=== PATIENT | male | born 1995 | race Caucasian/White ===

== ENCOUNTER 2017-09-03 21:49 | Emergency (ER) | payer BC ==
[~2017-09-03] VITALS: Ht 175.3 cm; Wt 70.4 kg
[2017-09-03 21:53] VITALS: BP 137/80; Ht 175.3 cm; Wt 70.4 kg
[2017-09-03] MEDS ORDERED: ADAP0.05 TOP (22:22)
[2017-09-03] MEDS ORDERED: MINO50CA3 PO (22:22)
[2017-09-03] MEDS ORDERED: AMOXICILLIN 250 MG CAP PO STA (23:01)
[2017-09-03] MEDS ORDERED: AMOXICILLIN HOME PACK 250 MG/TAB PO STA (23:01)
[2017-09-03] MEDS ORDERED: AMX500 PO (23:02)
--- NOTE | 2017-09-03 23:03 | EMERGENCY ROOM VISIT NOTE ---
History First contact with patient: 22:07 Chief Complaint: SORETHROAT Stated Complaint: SORE THROAT,CONGESTION History of Present Illness The patient is a 22 year old male who presents to the Emergency Room via private vehicle accompanied by female with complaints of "sore throat, congestion". The patient states that Wednesday morning he fell onto the weather , and has been using Mucinex and Advil for the headaches, congestion and sore throat. He also notes that his sides feel sore. He states that he had cold sweats this morning. He states that he has been feeling better as the day has been going on. He notes minimal light sensitivity. His immunizations are up-to -date. He denies any abdominal pain, urinary symptoms, or nausea. Review of Systems A complete 6-point Review of Systems was discussed with the patient, with pertinent positives and negatives listed in the History of Present Illness. All remaining Review of Systems questions can be considered negative unless otherwise specified. Past Medical/Surgical History No pertinent. Family History No pertinent. Social History Smoking Status: Never Smoker Patient lives locally and is a [employer] student. Current/Historical Medications Scheduled Adapalene-Benzoyl Peroxide (Epiduo), 1 APPLN TOP HS Amoxicillin (Amoxicillin), 500 MG PO TID Minocycline Hcl (Minocycline Hcl), 50 MG PO BID Physical Exam Vital Signs Date Time Temp Pulse Resp B/P (MAP) Pulse Ox O2 Delivery O2 Flow Rate FiO2 09/03/17 23:25 37.4 90 14 99 09/03/17 21:53 100 Room Air 09/03/17 21:53 37.4 89 18 137/80 100 Room Air Physical Exam VITAL SIGNS - Vital signs and nursing notes were reviewed. Stable. GENERAL -22-year-old male appearing his stated age who is in no acute distress. He is sitting upright on the bed and converses without difficulty. Communicates well with provider and answers questions appropriately. SKIN - Without rashes. No petechial rashes. HEAD - NC/AT. EYES - PERRL with EOMI bilaterally. Sclera anicteric. No hyphema. EARS - No deformities of external structures noted on gross examination bilaterally. No pain elicited with palpation of the tragus bilaterally. External auditory canals without discharge or otorrhea. Tympanic membranes pearly mckee without retraction or bulging. No fluid or purulent material visualized behind the TM. Handle of malleus, umbo, cone of light, pars tensa/ flaccid all easily visualized. NOSE - Midline and without cyanosis. No epistaxis or purulent drainage noted. Septum midline without deviation or septal hematoma noted. MOUTH/OROPHARYNX - Without perioral cyanosis. Buccal mucosa pink and moist and without leukoplakia. Tongue midline with equal elevation of palate bilaterally. No tonsillar hypertrophy, erythema, or exudates noted. Fair dentition noted. NECK - Neck with FROM. Supple to palpation. Bilateral anterior cervical lymphadenopathy noted. No nuchal rigidity. No meningismus. LUNGS - Chest wall symmetric without accessory muscle use, intercostals retractions, or central cyanosis. Normal vesicular breath sounds CTA B/L. No wheezes, rales, or rhonchi appreciated. CARDIAC - RRR with S1/S2. No murmur, rubs, or gallops appreciated. EXTREMITIES - No clubbing or peripheral cyanosis. No pretibial edema present. + 5/5 strength noted in UE/LE bilaterally. NEUROLOGIC - Cranial nerves II through XII grossly intact. Sensory intact to light touch throughout. PSYCH - A&O, and cooperates fully with examiner. Pt is very pleasant and interacts well with examiner. Medical Decision & Procedures Medications Administered Medications (Trade) Dose Ordered Sig/Maty Route Start Time Stop Time Status Last Admin Dose Admin Amoxicillin (Amoxil 250MG Home Pack) 1 homepack UD STAT PO 09/03/17 23:01 09/03/17 23:02 DC 09/03/17 23:22 1 HOMEPACK Amoxicillin (Amoxil Cap) 500 mg NOW STAT PO 09/03/17 23:01 09/03/17 23:02 DC 09/03/17 23:22 500 MG Medical Decision Patient was seen and evaluated as above. He presents to us today with a few day history of cough, congestion, and subjective chills/the wrist. He did not take his temperature. Upon entrance his oral temp is 37.4. His vital signs are stable. He is oxygenating well. Rapid strep was obtained and found to be negative. The patient is mostly be experiencing a viral process, however in line with the [facility] criteria, he does have subjective fever, anterior cervical lymphadenopathy, lack of cough as well as minimal tonsillar exudate. I will treat him for potential strep throat. He was given amoxicillin 500 mg 3 times a day for 10 days. Culture pending. He was offered additional blood work and laboratory studies but declined. He elected to go with the treatment of the potential strep throat, and return with worsening. He is to follow-up with [facility] for recheck or return here for worsening. He was educated upon management, educated upon worrisome symptoms in which to return, had questions answered prior to discharge, and was discharged home in good condition. In evaluation treatment this patient the following differential diagnoses were entertained: Strep pharyngitis, meningitis, encephalitis, viral process, pneumonia, among others. Impression Primary Impression: Sore throat Departure Information Dispostion Home / Self-Care Condition GOOD Prescriptions Amoxicillin (Amoxicillin) 500 Mg Cap 500 MG PO TID for 9 Days, #27 TABS Prov: Fan Wiseman, LETITIA 09/03/17 Referrals No Doctor, Assigned (PCP) Patient Instructions My [facility] Additional Instructions You were seen in the emergency department for your sore throat. The results of your rapid strep screen were found to be NEGATIVE. You will be contacted in 48- 72 hrs if the results of your culture are found to be positive and any change in antibiotics is necessary. You were prescribed Amoxicillin to be taken every 8 hours. This is an antibiotic. All antibiotics have the potential to cause diarrhea. Stop this medication and contact a medical provider if you were to develop any significant adverse side effects including: wheezing, shortness of breath, passing out, vomiting, or a diffuse rash. Always take antibiotics as directed and COMPLETE the ENTIRE course regardless of the improvement of your symptoms. For pain and fever control, you can use the following [id number] medicines (if >12 yo): - Regular strength (325mg/tab) Tylenol (acetaminophen) 2 tabs every 4-6 hours as needed. Do not exceed 12 tablets in a 24 hour period. Avoid taking more than 3 grams (3000 mg) of Tylenol per day. This includes any other sources of acetaminophen you may take on a regular basis. - Regular strength (200 mg/tab) Advil (ibuprofen) 1-2 tabs every 4-6 hours as needed. Do not exceed a dose of 3200 mg per day. - For best results, alternate dosing of Tylenol and Advil. In addition to your prescribed medications, you can also use the following home remedies: - Warm salt-water gargles 3 times per day can soothe your throat and help to fight infection. - Warm tea with honey can soothe your throat. Return to the emergency department if your symptoms persist or worsen over the next 2-3 days despite treatment course outlined above. Return to the emergency department if you develop the following symptoms of: inability to swallow solids , liquids, or drool; excessive wheezing or inability to catch your breath; or intractable fever or pain. Follow up with your primary care provider in 2-3 days from today's emergency department visit. I recommend following up with [facility]. Please return with any new/concerning symptoms.
[2017-09-03 23:25] VITALS: PULSE 90; TEMP 37.4; O2SAT 99
== END 2017-09-03 23:25 | disposition home or self-care (01) ==
LOC: C.EDB 21:52 → C.EDD 23:25
DX: J02.9 Acute pharyngitis, unspecified (principal)